=== PATIENT | female | born 1965 | race Caucasian/White ===

== ENCOUNTER 2017-05-24 22:44 | Emergency (ER) | payer OTHER ==
[~2017-05-24] VITALS: Ht 162.6 cm; Wt 83.0 kg
[~2017-05-24 22:44] MED LIST: ABILIFY15 MG; BUPROPION XL300 MG PO; LORAZEPAM0.5 MG; NAPROSYN500 MG PO; NORCO 5/3251 TABLET PO; VALIUM5 MG; VALIUM5 MG PO; VIIBRYD40 MG; ZOFRAN ODT4 MG PO
[2017-05-25] MEDS ORDERED: AUGMENTIN875 MG PO (00:07)
[2017-05-25 01:03] VITALS: BP 136/102
== END 2017-05-25 01:06 | disposition home or self-care (01) ==
LOC: EME 22:44
DX: S51.052A Open bite, left elbow, initial encounter (principal); W54.0XXA Bitten by dog, initial encounter
CPT/HCPCS: 73080; 99281; 99284